=== PATIENT | female | born 1960 | race Two or more races ===

== ENCOUNTER 2024-06-02 08:26 | Inpatient (IN) | payer BC, SELFPAY ==
[2024-05-29 09:22] LABS: Hematocrit 46.2 % (37.0-47.0); Hemoglobin 15.2 g/dL (12.0-16.0); Mean Corp Hgb Conc. 32.9 g/dL (33.0-37.0); Mean Corpuscular Hgb 30.2 pg (27.0-31.0); Mean Corpuscular Volume 91.7 fL (81.0-99.0); Mean Platelet Volume 10.3 fL (7.4-10.4); Platelet Count 314 10^3/uL (130-400); Red Blood Cell Count 5.04 10^6/uL (4.20-5.40); Red Cell Dist. Width 13.2 % (11.5-14.5); White Blood Cell Count 10.6 10^3/uL (4.8-10.8)
[2024-05-29 09:31] LABS: INR 1.01; PT 13.6 Sec (11.4-14.6)
[2024-05-29 09:32] LABS: APTT 30.5 Sec (23.4-35.0)
[2024-05-29 10:10] LABS: ALT (SGPT) 13 U/L (0-35); AST (SGOT) 15 U/L (14-36); Alkaline Phosphatase 83 U/L (38-126); Blood Urea Nitrogen 9 mg/dl (7-17); Calcium 9.4 mg/dl (8.4-10.2); Carbon Dioxide 30 mmol/L (22-30); Chloride 103 mmol/L (98-107); Glucose 93 mg/dl (70-99); Potassium 4.3 mmol/L (3.5-5.1); Sodium 139 mmol/L (135-145); Total Bilirubin 1.3 mg/dl (0.2-1.3); Total Protein 6.6 g/dl (6.3-8.2); eGFR > 60.00
[2024-05-29 11:44] VITALS: BMI 29.1
[2024-06-02] VITALS (10 sets, daily range): BP systolic 119–148; BP diastolic 53–77; BMI 29.1
[2024-06-02] MEDS: TYLENOL 1000 MG PO (09:16)
[2024-06-02] MEDS: NEURONTIN 300 MG PO (09:17)
[2024-06-02] MEDS: HEPARIN 5000 UNITS SC (09:17)
[2024-06-02] MEDS: NORMOSOL-R/PLASMALYTE-A 1000 IV (09:17)
[2024-06-02 09:57] LABS: Glucose - Point of Care 107 mg/dl (70-99)
[2024-06-02 12:14] LABS: Glucose - Point of Care 115 mg/dl (70-99)
--- NOTE | 2024-06-02 13:10 | OR.RPT ---
Operative Report
Operative Report
Date of Operation: June 02, 2024
Preoperative Diagnosis: Gallbladder mass - [id number]
Postoperative Diagnosis: Same
Surgeon: Lee Hein M.D.
Operation: Laparoscopic Cholecystectomy - [id number]
Anesthesia: General
Estimated Blood Loss: 20 cc
Drains: None
Specimen: Inflamed gallbladder with stone. No evidence of gallbladder mass
Complications: �None
Procedure:
After obtaining informed consent, the patient was brought to the operating room and placed in the supine position. General anesthesia was induced, and the patient was prepped and draped in the usual sterile fashion. A time-out was performed
confirming patient identity, procedure, and site.
A small infraumbilical incision was made, and a Veress needle was inserted to establish pneumoperitoneum with carbon dioxide to a pressure of 15 mmHg. A 10 mm trocar was then inserted, and a laparoscope was introduced. The abdominal cavity was
inspected, revealing no abnormalities other than the diseased gallbladder.
Three additional trocars were placed: a 5 mm trocar in the epigastrium, a 5 mm trocar in the right midclavicular line, and a 5 mm trocar in the right anterior axillary line. The gallbladder was identified and grasped at the fundus to allow for
retraction.
The Calot�s triangle was carefully dissected to identify the cystic duct and cystic artery. Both structures were isolated, clipped proximally and distally, and divided. The gallbladder was dissected off the liver bed using electrocautery, ensuring
hemostasis throughout.
The gallbladder was placed in an endoscopic retrieval bag and removed through the umbilical port. The abdominal cavity was irrigated and inspected for hemostasis and bile leaks. Finding none, the pneumoperitoneum was evacuated, and the trocars were
removed under direct visualization.
The fascia at the umbilical incision site was closed with interrupted sutures, and the skin incisions were closed with absorbable sutures and Steri-Strips. Sterile dressings were applied. The patient tolerated the procedure well and was extubated in
the operating room. The patient was transferred to the recovery room in stable condition.
== END 2024-06-02 16:23 | disposition home or self-care (01) | DRG 419 ==
LOC: AMOS 08:26
PROVIDERS: ADMITTING PHYSICIAN Surgery
PROC: 0FT44ZZ Resection of Gallbladder, Percutaneous Endoscopic Approach (ICD-10-PCS; 2024-06-02)
DX: K80.10 Calculus of gallbladder with chronic cholecystitis without obstruction (principal)
CPT/HCPCS: 88304; 80053; 82962; 85027; 85610; 85730; 86850; 86900; 86901; 86920; 88329; 93005